=== PATIENT | male | born 1965 | race Two or more races ===

== ENCOUNTER 2021-06-25 12:46 | Inpatient (IN) | payer MEDICAID ==
[2021-06-25] VITALS (12 sets, daily range): BP systolic 88–146; BP diastolic 61–97
[~2021-06-25] VITALS: Ht 167.6 cm; Wt 76.2 kg
[2021-06-25] MEDS: PROPOFOL 10MG/ML 50ML 50 ML IV PRN ×2 (11:32→13:32)
[2021-06-25] MEDS ORDERED: ETOMIDATE 2 MG/ML VIAL IV ONE ×2 (12:55→18:49)
[2021-06-25] MEDS ORDERED: SUCCINYLCHOLINE CHLORIDE 20 MG/ML VIAL IV ONE ×2 (12:55→18:49)
--- NOTE | 2021-06-25 12:59 | NUR ---
INTUBATION DONE WITH DR JAMA GIVEN ETOMIDATE 20MG AT 1257, SUCCINYLCHOLINE 80MG AT 1258
[2021-06-25] MEDS ORDERED: PROPOFOL 100 ML ONE ×3 (13:11→17:20)
--- NOTE | 2021-06-25 13:17 | NUR ---
PT. ADMITTED IN ER ALTERED @ [address] JAMA FOR AIRWAY PROTECTION. PT. INTUBATED WITH 7.5 ET TUBE AND SECURED @ 24 CM LIPLINE. CO2 DETECTOR CHANGED TO YELLOW COLOR POST INTUBATION. BREATH SOUNDS CLEAR BILATERAL WITH SYMMETRICAL CHEST RISE POST INTUBATION. VENT SETTINGS BELOW SET ORDER: AC 14 VT 500 ML FIO2 100% PEEP +5 VENT PLUGGED INTO RED OUTLET WITH ALARMS ON AND FUNCTIONING. AMBUBAG @ BEDSIDE. Addendum: 06/25/21 at 1322 by KYLE GOMES RT Amended: Links added.
--- NOTE | 2021-06-25 13:27 | NUR ---
X-RAY TECH AT THE BEDSIDE
[2021-06-25] MEDS ORDERED: IV NS 0.9% 1,000 ML BAG IV ONE ×2 (13:30→14:30)
[2021-06-25 13:40] LABS: BASOPHILS % (AUTO) 0.7 % (0.0-2.0); EOSINOPHILS % (AUTO) 0.8 % (0.0-6.0); HEMATOCRIT 47 % (39-51); HEMOGLOBIN 15.6 g/dL (13.5-17.5); LYMPHOCYTES # (AUTO) 1.6 K/uL (0.8-4.8); LYMPHOCYTES % (AUTO) 26.3 % (20.0-44.0); MEAN CORPUSCULAR HGB CONC 33 g/dl (31.0-36.0); MEAN CORPUSCULAR VOLUME 95 fL (80-96); MONOCYTES # (AUTO) 0.3 K/uL (0.1-1.30); MONOCYTES % (AUTO) 5.6 % (2.0-12.0); NEUTROPHILS # (AUTO) 4.1 K/uL (1.8-8.9); NEUTROPHILS % (AUTO) 66.6 % (43.0-81.0); PLATELET COUNT (AUTO) 285 K/uL (150-450); RED BLOOD CELL COUNT(AUTO) 4.94 MIL/uL (4.5-6.0); WHITE BLOOD COUNT (AUTO) 6.1 K/uL (4.3-11.0)
[2021-06-25 13:40] LABS: BILIRUBIN,URINE NEGATIVE (NEGATIVE); COLOR,URINE YELLOW (YELLOW); LEUKOCYTE ESTERASE ,URINE NEGATIVE (NEGATIVE); NITRITE, URINE NEGATIVE (NEGATIVE); PROTEIN,URINE NEGATIVE (NEGATIVE); UGLUCOSE NEGATIVE (NEGATIVE); UROBILINOGEN,URINE 0.2 EU/dL (0.2)
[2021-06-25 13:51] LABS: RBC,URINE 0-2 /HPF (0-2); WBC,URINE 0-2 /HPF (0-3)
[2021-06-25 13:52] LABS: BACTERIA,URINE Rare /HPF (None Seen); SQUAMOUS EPITHELIAL CELL,UR Rare /HPF (None Seen)
[2021-06-25 14:01] LABS: CALCIUM, SERUM 8.2 mg/dL (8.5-10.1); CARBON DIOXIDE 27 mmol/L (21-32); CHLORIDE 108 mmol/L (98-107); GLUCOSE 91 mg/dL (74-106); POTASSIUM 3.6 mmol/L (3.5-5.1); SODIUM SERUM 146 mmol/L (136-145); UREA NITROGEN, BLOOD 16 mg/dL (7-18)
--- NOTE | 2021-06-25 14:02 | NUR ---
COVID SWAB DONE AND SENT TO THE LAB
[2021-06-25 14:06] LABS: SERUM AMMONIA 28 umol/L (11-32)
[2021-06-25] MEDS ORDERED: CEFEPIME 1 GM in IV D5W 50 ML IV ONE (14:30)
[2021-06-25] MEDS ORDERED: VANCOMYCIN 1 GM in IV D5W 250 ML IV ONE (14:30)
--- NOTE | 2021-06-25 14:35 | NUR ---
The patient remains agitated; increased propofol drip to 50 mics per kilo per minute.
[2021-06-25 14:43] LABS: ALANINE AMINOTRANSFERASE 45 U/L (12-78); ALBUMIN 3.9 g/dL (3.4-5.0); ALKALINE PHOSPHATASE 70 U/L (46-116); ASPARTATE AMINOTRANSFERASE 51 U/L (15-37); BILIRUBIN,DIRECT 0.1 mg/dL (0.0-0.2); BILIRUBIN,TOTAL 0.2 mg/dL (0.2-1.0); TOTAL PROTEIN, SERUM 7.8 g/dL (6.4-8.2)
[2021-06-25 14:47] LABS: ACETAMINOPHEN 0 ug/ml (10-30)
--- NOTE | 2021-06-25 14:53 | NUR ---
vent changes below per dr. Storey: huma 18 fio2 40% Addendum: 06/25/21 at 1454 by KYLE GOMES RT Amended: Links added.
--- NOTE | 2021-06-25 14:54 | NUR ---
[facility] PAGED. WAITING FOR CALL BACK.
[2021-06-25 15:14] LABS: ALCOHOL, BLOOD 349 mg/dL (0-0)
--- NOTE | 2021-06-25 15:37 | NUR ---
POISON CONTROL CALLED,SPOKE APOORVA MITCHELL, RECOMMEND REPEATING LFT'S IN 4 HRS, IF INCREASING, MAY NEED TO BE STARTED ON MUCOMYST
--- NOTE | 2021-06-25 16:17 | NUR ---
THE PATIENT IS BACK FROM CT
[2021-06-25] MEDS: LEVETIRACETAM (500MG) 1,000 MG in IV NS 0.9% 100 ML IV SCH (16:30)
--- NOTE | 2021-06-25 17:01 | NUR ---
ROOM 254
--- NOTE | 2021-06-25 17:09 | NUR ---
REPORT GIVEN TO NURSE TERRELL FROM ICU
[2021-06-25 17:10] LABS: MAGNESIUM 2.4 mg/dL (1.8-2.4); PHOSPHORUS 3.4 mg/dL (2.5-4.9)
[2021-06-25] MEDS: PROPOFOL 100 ML IV PRN ×2 (17:45→21:05)
--- NOTE | 2021-06-25 17:50 | NUR ---
RECEIVED PT FROM ER VIA [facility] SLIGHTLY AGITATED, ON DIPRIVAN @ 50MCG/KG/MIN INFUSING VIA RAC#18 TO TITRATE PER PROTOCOL,INTUBATED WITH ETT/ 7.5 ON LIP OF 24 CM VENT SETTING PER MD ORDER FIO2 40% SPO2 98% SAFELY TRANSFER FROM [facility] TO BED HOOKED TO BEDSIDE MONITOR WITH READING SINUS RHYTHM 80'S V/S CHECKED AND RECORDED AFEBRILE TEMP 98.3F,HAVE LHAND #18 PATENT AND FLUSHED, BILATERAL WRIST RESTRAINTS INITIATED WITH MD ORDER FOR SELF EXTUBATION PRECAUTION, HEAD TO TOE ASSESSMENT DONE ADMISSION ASSESSMENT DONE, BED ON LOWEST POSITION AND LOCKED SIDE RAILS UP X2 WILL CONT TO MONITOR
--- NOTE | 2021-06-25 17:56 | NUR ---
pt. transferred from er#8 to 254. pt. use same mechanical ventilator, connected to red outlet with ambubag @ bedside. Addendum: 06/25/21 at 1758 by KYLE GOMES RT Amended: Links added.
[2021-06-25] MEDS ORDERED: ACETYLCYSTEINE IV SCH ×3 (18:00→23:00)
[2021-06-25] MEDS ORDERED: ACETAMINOPHEN 650 MG/SUPP.RECT RC PRN (18:00)
[2021-06-25] MEDS ORDERED: PROPOFOL 100 ML IV PRN (18:00)
[2021-06-25] MEDS ORDERED: ONDANSETRON HCL/PF 4 MG/2 ML VIAL IVP PRN (18:00)
[2021-06-25] MEDS ORDERED: Z GUARD REMEDY 2 OZ OINT TP PRN (18:00)
[2021-06-25] MEDS ORDERED: D5W IV SCH ×3 (18:00→23:00)
--- NOTE | 2021-06-25 18:02 | NUR ---
THE PATIENT IS TRANSFERED TO [facility] PER [facility] POLICY
[2021-06-25] MEDS: IV D5W 1,000 ML IV PRN (18:13)
[2021-06-25] MEDS: ENOXAPARIN SODIUM 40 MG/0.4 ML DISP.SYRIN SQ SCH (18:14)
--- NOTE | 2021-06-25 19:51 | NUR ---
reported to Dr Alis hameed that pt triglycerides is 187 and pt is currently on Propofol 60 mcg/kg/min with no new order
[2021-06-25 20:28] LABS: ALBUMIN 2.9 g/dL (3.4-5.0); BILIRUBIN,TOTAL 0.3 mg/dL (0.2-1.0); CALCIUM, SERUM 7.3 mg/dL (8.5-10.1); CREATININE 0.8 mg/dL (0.6-1.3); POTASSIUM 4.4 mmol/L (3.5-5.1); TOTAL PROTEIN, SERUM 6.7 g/dL (6.4-8.2)
--- NOTE | 2021-06-25 21:01 | NUR ---
RT NOTE PT RECEIVED INTUBATED WITH 7.5 ET TUBE @ 24 CM. CUFF INFLATED. VENT PLUGGED TO RED OUTLET. ALARMS ON AND AUDIBLE. SMALL THIN SECRETIONS NOTED. PT TOLERATING CURRENT SETTINGS. NO RESPIRATORY DISTRESS NOTED. WILL CONTINUE TO MONITOR CLOSELY. Addendum: 06/25/21 at 2103 by MARCIN GARCIA RT Amended: Links added.
--- NOTE | 2021-06-25 23:05 | NUR ---
RECEIVED CALL FROM POISON CONTROL MR SANDERS AND GIVE UPDATE ABOUT THE PT, MR SANDERS RECOMMEND AN STAT EKG TO SEE THE QRS INTERVAL AND FOR HIM IF THE QRS >0.12 HE RECOMMEND NaHCO3 BOLUS 1-2 MEQ/KG WILL INFORMED MD ZLUUAGA ABOUT THE RECOMMENDATION AND MR SANDERS ALSO REQUEST TO REPEAT LIVER FUNCTION TEST FOR THE AM, DR LINDA ZULUAGA MADE AWARE
[2021-06-25 23:09] LABS: THYROID STIMULATING HORMONE 0.226 uIU/mL (0.358-3.74)
[2021-06-25] MEDS ORDERED: LORAZEPAM INJ 2 MG/ML VIAL IV PRN (23:30)
[2021-06-26] VITALS (31 sets, daily range): BP systolic 111–149; BP diastolic 71–99
[2021-06-26] MEDS: PROPOFOL 100 ML IV PRN ×3 (00:53→08:06)
[2021-06-26] MEDS: LEVETIRACETAM (500MG) 1,000 MG in IV NS 0.9% 100 ML IV SCH ×2 (03:34→16:43)
[2021-06-26 04:54] LABS: BASOPHILS % (AUTO) 0.3 % (0.0-2.0); EOSINOPHILS % (AUTO) 0.4 % (0.0-6.0); HEMATOCRIT 38 % (39-51); LYMPHOCYTES # (AUTO) 0.7 K/uL (0.8-4.8); LYMPHOCYTES % (AUTO) 8.3 % (20.0-44.0); MEAN CORPUSCULAR HGB CONC 34 g/dl (31.0-36.0); MEAN CORPUSCULAR VOLUME 94 fL (80-96); MONOCYTES # (AUTO) 1.2 K/uL (0.1-1.30); MONOCYTES % (AUTO) 12.8 % (2.0-12.0); NEUTROPHILS % (AUTO) 78.2 % (43.0-81.0); PLATELET COUNT (AUTO) 188 K/uL (150-450); RED BLOOD CELL COUNT(AUTO) 4.08 MIL/uL (4.5-6.0)
[2021-06-26 05:07] LABS: CALCIUM, SERUM 7.2 mg/dL (8.5-10.1); CREATININE 0.6 mg/dL (0.6-1.3); POTASSIUM 2.9 mmol/L (3.5-5.1)
[2021-06-26 05:18] LABS: ALBUMIN 2.9 g/dL (3.4-5.0); BILIRUBIN,DIRECT 0.1 mg/dL (0.0-0.2); BILIRUBIN,TOTAL 0.3 mg/dL (0.2-1.0); MAGNESIUM 1.5 mg/dL (1.8-2.4); PHOSPHORUS 2.4 mg/dL (2.5-4.9); TOTAL PROTEIN, SERUM 6.1 g/dL (6.4-8.2)
[2021-06-26] MEDS: IV D5W 1,000 ML IV PRN (07:03)
--- NOTE | 2021-06-26 07:30 | NUR ---
ICU/RN PT IS INTUBATED ON THE VENT AC MODE.FIO2-30%,SAT O2-100%.V/S STABLE AFEBRILE.SEDATED WITH DIPRIVAN.NG TUBE CONNECTED TO LOW INTERMEDIATE SUCTION WITH DARK OUTPUT.F/C DRAINING WITH YELLOW URINE.SKIN INTACT.LABS REVIEW. NOTIFIED.NEW ORDERS RECEIVED.
[2021-06-26] MEDS: Magnesium 1GM/D5W 100ML PREMIX 100 ML IV SCH ×2 (08:50→10:45)
[2021-06-26] MEDS: POTASSIUM CHLORIDE 20 MEQ POWDER PACKET NG SCH ×3 (08:50→12:21)
--- NOTE | 2021-06-26 09:00 | NUR ---
RT PATIENT WAS PLACED ON VENT WEANING MODE PER DR MIKKI MENG. PATIENT AWAKE RESPONSIVE. PATIENT SELF EXTUBATED AND WAS PLACED ON 2L N/C AMY MENG. NO SOB REPORTED. Addendum: 06/26/21 at 1014 by ALEXIS QUINTANA RT Amended: Links added.
--- NOTE | 2021-06-26 09:00 | NUR ---
ICU/RN PT WAS OFF DIPRIVAN ,ON SIMV MODE,FULLY AWAKE.BILATERAL SOFT WRIST RESTRAINS ON.VERY AGITATED.SELF EXTUBATED. AWAKE ALERT.PLACED ON 2L N/C .SAT O2-100%.NO S/S OF DISTRESS NOTED.DR KAYE SEEN THE PT. CONTINUE MONITORING.
[2021-06-26 10:20] LABS: ALBUMIN 2.8 g/dL (3.4-5.0); BILIRUBIN,TOTAL 0.6 mg/dL (0.2-1.0); CALCIUM, SERUM 7.2 mg/dL (8.5-10.1); CREATININE 0.9 mg/dL (0.6-1.3)
[2021-06-26 10:30] LABS: POTASSIUM 3.4 mmol/L (3.5-5.1)
[2021-06-26] MEDS: LORAZEPAM INJ 2 MG/ML VIAL IV PRN (10:45)
--- NOTE | 2021-06-26 12:00 | NUR ---
ICU/RN DR BATEMAN SEEN THE PT.OK TO D/C NG TUBE AND F/C .OK TO START PO DIET.
--- NOTE | 2021-06-26 12:59 | NUR ---
HARIS spoke with Log Hauler Alicja [] regarding pt.'s overdose. Alicja mentioned that she will come see pt.
[2021-06-26] MEDS ORDERED: Sodium Phosphate 15 MMOL in IV NS 0.9% 245 ML IV SCH (15:30)
--- NOTE | 2021-06-26 16:24 | NUR ---
SS consutl requested for family/ support system information. SW will follow up at a later time.
[2021-06-26] MEDS: ENOXAPARIN SODIUM 40 MG/0.4 ML DISP.SYRIN SQ SCH (18:28)
--- NOTE | 2021-06-26 19:10 | NUR ---
RECEIVED PT ON BED AWAKE, AA/O X4 CAN VERBALIZED NEEDS DENY ANY SUICIDAL IDEATION AT THIS MOMENT, HE TOLD ME THAT HE WAS ALCOHOLIC BEFORE AND HE WAS CLEAN 2 YEARS AGO BUT THIS PASS 3 DAYS HE BECOME SO DEPRESSED AND HE STARTED TO DRINK AGAIN, HE ALSO TOLD ME THAT HE IS TAKING ANTI DEPRESSION MEDICATION AND IT WAS STOP 3 MONTHS AGO CANNOT TELL ME IF IT IS D/C BY HIS MD OR HE JUST STOP IT BY HIMSELF, TELE MONITOR READS SINUS RHYTHM 80'S ON MONITOR HAVE RAC#18 IV AND LEFT HAND #18 IV PATENT AND FLUSHED WITH ONGOING D5W @ 75ML/HR INFUSING WELL, BED ON LOWEST POSITION AND LOCKED SIDE RAILS UP X2 CALL LIGHT WITHIN REACH WILL CONT TO MONITOR
[2021-06-27] VITALS (22 sets, daily range): BP systolic 120–146; BP diastolic 81–103
[2021-06-27] MEDS: IV D5W 1,000 ML IV PRN ×2 (01:16→15:56)
[2021-06-27 04:32] LABS: BASOPHILS % (AUTO) 0.7 % (0.0-2.0); EOSINOPHILS % (AUTO) 2.4 % (0.0-6.0); HEMATOCRIT 39 % (39-51); HEMOGLOBIN 13.2 g/dL (13.5-17.5); MEAN CORPUSCULAR HGB CONC 34 g/dl (31.0-36.0); MEAN CORPUSCULAR VOLUME 93 fL (80-96); MONOCYTES # (AUTO) 0.8 K/uL (0.1-1.30); MONOCYTES % (AUTO) 14.5 % (2.0-12.0); NEUTROPHILS # (AUTO) 3.8 K/uL (1.8-8.9); NEUTROPHILS % (AUTO) 65.4 % (43.0-81.0); PLATELET COUNT (AUTO) 179 K/uL (150-450); RED BLOOD CELL COUNT(AUTO) 4.18 MIL/uL (4.5-6.0); WHITE BLOOD COUNT (AUTO) 5.8 K/uL (4.3-11.0)
[2021-06-27] MEDS: LEVETIRACETAM (500MG) 1,000 MG in IV NS 0.9% 100 ML IV SCH (04:32)
[2021-06-27 04:56] LABS: ALBUMIN 2.9 g/dL (3.4-5.0); CALCIUM, SERUM 7.7 mg/dL (8.5-10.1); CREATININE 0.7 mg/dL (0.6-1.3); MAGNESIUM 2.2 mg/dL (1.8-2.4); PHOSPHORUS 2.8 mg/dL (2.5-4.9); POTASSIUM 3.7 mmol/L (3.5-5.1); TOTAL PROTEIN, SERUM 6.1 g/dL (6.4-8.2)
--- NOTE | 2021-06-27 07:00 | NUR ---
RN NOTES RECEIVED PT ON BED, A/Ox4, ON RA, NO RESPIRATORY DISTRESS NOTED, ON TELE SR HR IN 70'S , IVF AT 75CC/ HR RUNNING , RAC AND L HAND IV SITES CLEAN ,DRY AND INTACT, SR UP x3,CALL LIGHT WITHIN EASY REACH, BED LOCKED AND IN LOWEST POSITION, CONTINUE TO MONITOR.
--- NOTE | 2021-06-27 07:11 | NUR ---
PT ON BED AWAKE ON ROOM AIR NO SIGN OF RESPIRATORY DISTRESS SPO2>94% , TELE MONITOR READS SINUS RHYTHM 80'S NO SIGNIFICANT CHANGES ON CONDITION NOTED, ALL NEEDS ATTENDED, BED ON LOWEST POSITION AND LOCKED SIDE RAILS UP X2 CALL LIGHT WITHIN REACH WILL ENDORSED TO AM SHIFT NURSE
[2021-06-27] MEDS: TAMSULOSIN 0.4 MG CAP.SR.24H PO SCH (10:55)
--- NOTE | 2021-06-27 12:00 | NUR ---
RN NOTES ORDER RECEIVED FOR PSYCH CONSULT, DR COLLINS NOTIFIED.
--- NOTE | 2021-06-27 12:35 | NUR ---
SS consult: SS Consult requested for homelessness and family contact. The pt. is a 55 year old male in ICU admitted for possible seizure and OD.Pt. GALINDO were very elevated upon admission. SW met with pt. bedside. The pt. is A&O X 4 and makes good eye contact. Pt. appears unkempt and his mood is depressed with flat affect. Pt. denies SI/HI and denies hallucinations. Pt. stated he was residing at [facility], were he completed a alcohol rehabilitation program and was employed as a Project Management Advisor. However, pt. stated he relapsed and drank Liquor for 3 days straight. Pt. states he does not want to continue using alcohol. SW provided addiction resources and pt. accepted them. SW offered drug rehab referral and pt. refused. SW explored pt.'s support system/ familial relationships. Pt. stated that past of the reason why he is depressed is because he has no family in the area. Pt. stated that he is and his 2 children and ex- live in [place]. Pt. states he has no plan to move to [place] and his children cannot help him. SW explored pt.'s financial situation. Pt. states he does not receive any financial assistance and lost his job. However, pt. states he has some money to hold him off for some time. SW explored pt.'s discharge plan. Pt.stated he may be open to alf placement if nothing else is available.SW explored pt.'s mental health Hx. Pt. states he has been diagnosed with Depression int he past and was last taking Effexor. Pt. stated he gets his psych meds ref[facility] at [facility] in [facility]. SW provided pt. with homeless, addiction and mental health resources. Pt. accepted them Pt. signed homeless waiver and it was placed in the chart. Per nursing, no DC date as of yet, pt. will be downgraded today. Pt. requested referral to "[facility]". SW will follow up with alf placement the day of DC. Year-round shelters: [facility] [address] [place], [place] [id number] ; [facility] [address] [place] [address]; [facility] [id number] [facility]. [facility] [address] Winter Shelters: Felicia Chaney [place] Provider: [facility] [place] Address: [address], [address] # of Beds: 47 Population Served: [facility] 6 | [facility] Noa Chery [place] Provider: [facility] Address: [address], [address] # of Beds: 66 Population Served: [facility] Griselda [place] Provider: [facility] Serve Address: [address] [facility], [address] # of Beds: 56 Population Served: [facility] [place] Provider: [facility] Address: [address] [facility], [address] # of Beds: 49 Population Served: [facility] 8 | [facility] Provider: [facility] Serve Address: [address] [facility] [place], [address] # of Beds: 37 Population Served: [facility] Hygiene: [place] [facility]: [address] [facility] ; [facility] [facility] [address] [facility] ; [facility] [address] [facility] . Food Resources: [place] [facility] at [facility]- [address] [facility]; Meet Each Need with Dignity ([facility]) [address] [facility]; [facility] Food Pantry [address] [facility]; [facility] [address] [facility]. Mental Health resources provided: [facility] [address] [place] [address] ; [facility] [address] [facility] [address], [place] [address] ; Marjorie Fontenot [facility] Mental [facility] [address] [place] [address] ; [facility] [place], [place] [id number] Healthcare Clinics: [facility] [address] [place]. [place] ; [facility] [address] [facility] [address] [place] [address]; [facility] [address] [place] [phone]) [phone] Counseling--Outpatient [facility] [address], [place] [address] (Specializes in in-depth psychotherapy for emotional distress: anxiety, depression, interpersonal conflicts, life transitions, childhood abuse) [facility] [address] [place] [address] (Assist with solving problem marital difficulties, separation & divorce, aging parents, & grief, chronic & terminal illness) [facility] [address] [place] [address] (Deal with loss & grief, anxiety, marital difficulties) Homebound/Mental Health Services [address] [place] [address] (Provide in-home mental services to people who are incapable of leaving their homes) [facility] of the Elderly Senior Service/Resource Center [address] [place] [address] [facility] [address] [place] [address] PSYCHIATRIC OUTPATIENT SERVICES [facility] Partial Hospitalization and Intensive Outpatient Program (Managed Care and Printer Only)[address] [facility] [phone] [facility] Partial Hospitalization and Outpatient [id number] [place], [place] [phone] PAT LOR[facility] [place] [id number] [place], [place] [phone] [facility] Partial Hospitalization and Outpatient [id number] iVolette Silverman, [phone] Substance Abuse resources provided included: [facility] Substance Abuse Self-Helpline ([facility]) ; [facility]LP [address] [facility]. [place] [address] ; [facility] [place] [address] [facility] [address] ; [facility] Rehabilitation Program [address] [facility] [address] ; [facility] [address] [facility] [facility] [address] ; [facility] [address] [facility] [address] ; [facility] [address] [facility] [phone] ; [facility] Substance Abuse Helpline([facility])-[facility] ; [facility] ; [facility] [place]; [facility] [place]; [facility] [place]; [facility] [place]; [facility] [place]; [facility] [place]; [facility], [facility]. [place]; Alcoholics Anonymous -SFV; Gk-Rjcr-Nypwuzw ; Marijuana Anonymous -[facility]; Narcotics Anonymous www.na.org;
[2021-06-27] MEDS: LORAZEPAM INJ 2 MG/ML VIAL IV PRN (12:56)
[2021-06-27] MEDS: Fluoxetine 10 mg capsule PO SCH (13:45)
[2021-06-27] MEDS: FINASTERIDE (5 MG) 5 MG TABLET PO SCH (13:45)
--- NOTE | 2021-06-27 14:00 | NUR ---
RN NOTES PT DENIES ANY SUICIDAL IDEATION . VSS STABLE .
[2021-06-27] MEDS: LEVETIRACETAM (250 MG) 250 MG TABLET PO SCH (17:05)
[2021-06-27] MEDS: ENOXAPARIN SODIUM 40 MG/0.4 ML DISP.SYRIN SQ SCH (17:09)
--- NOTE | 2021-06-27 18:20 | NUR ---
MS RN NOTES RECEIVED PATIENT FROM ICU ENDORSED BY NURSE ROBISON. PATIENT WAS TRANSFERRED VIA GURNEY, AWAKE AND A/O X4. ON ROOM AIR, NO SOB NOTED. NOT IN DISTRESS. WITH IV ACCESS AT RIGHT AC G18 WITH NS AT 75ML/HR INFUSING WELL AND AT LEFT HAND G18, SALINE LOCKED, INTACT AND PATENT. ON REGULAR DIET. SAFETY MEASURES IN PLACE. CALL LIGHT WITHIN REACH. BED ON LOWEST AND LOCKED POSITION, SIDE RAILS UP X2. WILL ENDORSE TO NEXT SHIFT FOR LAYLA.
--- NOTE | 2021-06-27 18:20 | NUR ---
RN NOTES PT STABLE, NO SIGNIFICANT CHANGES NOTED ON THIS SHIFT , PT TRANSFERRED TO ROOM 323-2 MS STATUS , REPORT GIVEN TO MACO ODEN FOR CONTINUITY OF CARE .
--- NOTE | 2021-06-27 19:25 | NUR ---
MS RN NOTES PT AWAKE, ALERT, ABLE TO VERBALIZE NEEDS. HE DENIES ANY PAIN AT THIS TIME. RESPIRATIONS EVEN/UNLABORED. ON ROOM AIR AND AMY WELL. IV SITE: R-AC INTACT/PATENT, RUNNING D5W @75ML/HR. PT IN NO ACUTE DISTRESS. SAFETY MEASURES IN PLACE, BED IN LOWEST LOCKED POSITION, S/R UPX2, CALL LIGHT WITHIN REACH. WILL CONT TO MONITOR.
--- NOTE | 2021-06-27 21:54 | NUR ---
RN NOTE PT C/O BLADDER PAIN, STATING "I PEE LITTLE BY LITTLE ONLY." NOTED PT'S LINENS WET AND URINAL HAS 50CC ONLY. BLADDER SCAN DONE, NOTED 728ML RESIDUAL. CALLED TO DR. MCKEON WITH ORDER TO DO STRAIGHT CATH AND CONT TO MONITOR IF STILL WITH DIFFICULTY URINATING, TO INFORM MD IN AM IF MEDS NEED TO BE ADJUSTED.
--- NOTE | 2021-06-27 22:15 | NUR ---
RN NOTE STRAIGHT CATH DONE, TAKEN OUT 950ML URINE. PT AMY WELL, STATES PAIN SUBSIDED AND "I FEEL BETTER."
--- NOTE | 2021-06-27 23:00 | NUR ---
RN NOTE PT SLEEPING COMFORTABLY AT THIS TIME.
[2021-06-28] MEDS: IV D5W 1,000 ML IV PRN (05:20)
[2021-06-28] MEDS: LEVETIRACETAM (250 MG) 250 MG TABLET PO SCH (05:21)
--- NOTE | 2021-06-28 06:40 | NUR ---
RN NOTE PT WOKE UP, C/O BLADDER PAIN/DIFFICULTY URINATING. BLADDER SCAN SHOWING 615ML RESIDUAL. CALLED/PAGED DR. MCKEON. STRAIGHT CATH OBTAINED 650ML OUTPUT. PT REFUSED TO HAVE CATH TAKEN OUT AT THIS TIME BECAUSE OF HIS INABILITY TO URINATE. NO CALL BACK YET. WILL ENDORSE TO NEXT SHIFT NURSE.
[2021-06-28 07:04] LABS: BASOPHILS % (AUTO) 0.6 % (0.0-2.0); EOSINOPHILS % (AUTO) 2.4 % (0.0-6.0); HEMATOCRIT 40 % (39-51); HEMOGLOBIN 13.4 g/dL (13.5-17.5); LYMPHOCYTES # (AUTO) 0.9 K/uL (0.8-4.8); LYMPHOCYTES % (AUTO) 14.2 % (20.0-44.0); MEAN CORPUSCULAR HGB CONC 33 g/dl (31.0-36.0); MEAN CORPUSCULAR VOLUME 93 fL (80-96); MONOCYTES # (AUTO) 0.8 K/uL (0.1-1.30); MONOCYTES % (AUTO) 12.1 % (2.0-12.0); NEUTROPHILS # (AUTO) 4.7 K/uL (1.8-8.9); NEUTROPHILS % (AUTO) 70.7 % (43.0-81.0); PLATELET COUNT (AUTO) 190 K/uL (150-450); RED BLOOD CELL COUNT(AUTO) 4.31 MIL/uL (4.5-6.0); WHITE BLOOD COUNT (AUTO) 6.6 K/uL (4.3-11.0)
[2021-06-28 07:19] LABS: CREATININE 0.7 mg/dL (0.6-1.3); POTASSIUM 3.6 mmol/L (3.5-5.1)
--- NOTE | 2021-06-28 07:54 | NUR ---
RN OPENING NOTE PT AWAKE IN BED RESTING. ON RA WITH NO SOB OR RESPIRATORY DISTRESS PRESENT. A/O X4 AND MOZAMBICAN SPEAKING. JACK SPOOLER TENDER USED. NO COMPLAINT OF PAIN OR NAUSEA. NO EDEMA PRESENT. CONTINENT WITH URINAL AT BEDSIDE. ON REDREST. SKIN IS INTACT. IV PRESENT ON R AC 18G AND FLUSHES WELL. IVF RUNNING. IV PRESENT ON L HAND 18G. LABS AND ORDERS REVIEWED. SAFETY MEASURES IN PLACE. SIDE RAILS RAISED. BED LOWERED. CALL LIGHT WITHIN REACH. WILL CONTINUE TO MONITOR.
[2021-06-28 08:00] VITALS: BP 139/91
[2021-06-28] MEDS: Fluoxetine 10 mg capsule PO SCH (08:10)
[2021-06-28] MEDS: FINASTERIDE (5 MG) 5 MG TABLET PO SCH (08:10)
[2021-06-28] MEDS: TAMSULOSIN 0.4 MG CAP.SR.24H PO SCH (08:10)
[2021-06-28] MEDS ORDERED: TAMSULOSIN 0.4 MG CAP.SR.24H PO SCH (13:00)
[2021-06-28 16:00] VITALS: BP 103/74
--- NOTE | 2021-06-28 16:04 | NUR ---
CURRENCY EXCHANGE SPECIALIST NOTE PT DISCHARGED HOME. TAP CARD PROVIDED. BELONGINGS CHANGED AND GIVEN TO PT. IV LINE REMOVED. ID BAND REMOVED. EXITCARE EDUCATION UTILIZED AND GIVEN TO PT. NEW PRESCRIPTION GIVEN TO PT. SW CONSULTED AND EDUCATION PROVIDED. WALKER PROVIDED. SKIN INTACT. PT ESCORTED WITH STEAMTABLE WORKER VIA WHEELCHAIR.
[2021-06-28] MEDS ORDERED: FINASTERIDE (5 MG) 5 MG TABLET PO SCH (17:00)
== END 2021-06-28 16:13 | disposition home or self-care (01) | DRG 817 ==
LOC: ER 12:58 → ICU 17:01 → MED 06-27 18:09
PROVIDERS: ADMIT Nurse Practitioner Family; ATTEND Nurse Practitioner Family
PROC: 5A1935Z Respiratory Ventilation, Less than 24 Consecutive Hours (ICD-10-PCS; principal; 2021-06-25)
PROC: 0BH18EZ Insertion of Endotracheal Airway into Trachea, Via Natural or Artificial Opening Endoscopic (ICD-10-PCS; 2021-06-25)
DX: T39.312A Poisoning by propionic acid derivatives, intentional self-harm, initial encounter (principal); J96.00 Acute respiratory failure, unspecified whether with hypoxia or hypercapnia; I46.9 Cardiac arrest, cause unspecified; J69.0 Pneumonitis due to inhalation of food and vomit; G92.8 Other toxic encephalopathy; E87.2 Acidosis; R65.10 Systemic inflammatory response syndrome (SIRS) of non-infectious origin without acute organ dysfunction; E87.0 Hyperosmolality and hypernatremia; T51.0X2A Toxic effect of ethanol, intentional self-harm, initial encounter; R45.851 Suicidal ideations; Z20.822 Contact with and (suspected) exposure to COVID-19; Y92.89 Other specified places as the place of occurrence of the external cause; Y90.8 Blood alcohol level of 240 mg/100 ml or more; G40.509 Epileptic seizures related to external causes, not intractable, without status epilepticus; F32.A Depression, unspecified; F10.10 Alcohol abuse, uncomplicated; E87.6 Hypokalemia; E83.42 Hypomagnesemia; J98.11 Atelectasis
CPT/HCPCS: 31720; 36415; 36600; 70450-TC; 71045-TC; 80048-TC; 80053-TC; 80076-TC; 81001; 82140-TC; 82803-TC; 83605-TC; 83735-TC; 84100-TC; 84439-TC; 84443-TC; 84478-TC; 84484-TC; 85025-TC; 85730-TC; 86803; 87040-TC; 87081-TC; 87806; 93307-TC; 94002-TC; 94003-TC; 94799-TC; 97116-TC; 97530-TC; A9563; C9803; G0378; G0480; J0132; J0330; J0692; J1650; J1953; J2060; J3370; J3475; J3490; J7030; J7050; J7060; J7070